=== PATIENT | female | born 1985 | race African-American/Black ===

== ENCOUNTER 2017-03-18 14:19 | Emergency (ER) | payer OTHER ==
[~2017-03-18] VITALS: Ht 162.6 cm; Wt 60.0 kg
[2017-03-18] MEDS ORDERED: SODIUM CHLORIDE 0.9% 1,000 ML IV ONE (15:57)
[2017-03-18 16:42] LABS: BASOPHILS % 0.4 % (0.0-2.0); EOSINOPHILS % 0.5 % (0.0-5.0); HEMATOCRIT. 37.5 % (36.0-48.0); HEMOGLOBIN. 12.5 g/dL (12.0-16.0); INR 1.1; LYMPHOCYTES % 13.3 % (20.0-50.0); MEAN CORPUSCULAR HEMOGLOBIN 31.2 pg (28.0-32.0); MEAN CORPUSCULAR VOLUME 93.5 fL (81.0-99.0); MEAN PLATELET VOLUME 8.2 fl (7.4-10.4); NEUTROPHILS % 77.8 % (40.0-76.0); PLATELET 239 x1000/uL (130-400); RED BLOOD CELL COUNT 4.01 mill/uL (4.2-5.4); RED CELL DISTRIBUTION WIDTH 12.8 % (11.6-14.6)
[2017-03-18 16:43] LABS: CARBON DIOXIDE 26 mEq/L (21-32); CHLORIDE 107 mEq/L (98-107)
[2017-03-18 17:35] LABS: CLARITY URINE CLEAR (CLEAR); COLOR URINE YELLOW (YELLOW); GLUCOSE URINE NEGATIVE (NEGATIVE); KETONES URINE 1+ (NEGATIVE); LEUKOCYTE ESTERASE URINE 1+ (NEGATIVE); NITRITE URINE NEGATIVE (NEGATIVE); OCCULT BLOOD URINE NEGATIVE (NEGATIVE); PROTEIN URINE NEGATIVE (NEGATIVE); SPECIFIC GRAVITY URINE 1.009 (1.005-1.030); UROBILINOGEN URINE 0.2 E.U./dL (0.2-1.0)
[2017-03-18 17:48] LABS: *AMPHETAMINES SCREEN URINE NEGATIVE (NEGATIVE); *BARBITURATES SCREEN URINE NEGATIVE (NEGATIVE); *BENZODIAZEPINES SCREEN URINE NEGATIVE (NEGATIVE); *COCAINE SCREEN URINE NEGATIVE (NEGATIVE); CANNABINOID URINE SCREEN NEGATIVE (NEGATIVE); METHADONE URINE SCREEN NEGATIVE (NEGATIVE); OPIATES URINE SCREEN NEGATIVE (NEGATIVE); PHENCYCLIDINE URINE SCREEN NEGATIVE (NEGATIVE)
[2017-03-18 18:18] VITALS: BP 107/69
== END 2017-03-18 18:38 | disposition home or self-care (01) ==
LOC: ER 14:22
DX: R42 Dizziness and giddiness (principal)
CPT/HCPCS: 36415; 80053; 80305; 81001; 81025; 85025; 85610; 93005; 99285; J7030; Z7610

== ENCOUNTER 2018-02-04 20:00 | Emergency (ER) | payer OTHER ==
[~2018-02-04] VITALS: Ht 167.6 cm; Wt 75.0 kg
[2018-02-04 20:06] VITALS: BP 116/73
[2018-02-04] MEDS ORDERED: CETI10CA2 MT (20:23)
== END 2018-02-04 22:00 | disposition left against medical advice (07) ==
LOC: ER 21:00
DX: O26.891 Other specified pregnancy related conditions, first trimester (principal); O20.8 Other hemorrhage in early pregnancy; Z3A.08 8 weeks gestation of pregnancy; Z53.21 Procedure and treatment not carried out due to patient leaving prior to being seen by health care provider

== ENCOUNTER 2022-04-05 16:36 | Emergency (ER) | payer OTHER ==
[~2022-04-05] VITALS: Ht 167.6 cm; Wt 74.0 kg
[~2022-04-05 16:36] MED LIST: CETI10CA2 MT
[2022-04-05 19:00] VITALS: BP 123/79
[2022-04-05] MEDS ORDERED: IBUPROFEN 400MG TABLET PO ONE (19:00)
[2022-04-05] MEDS ORDERED: ACETAMINOPHEN 325MG TABLET PO ONE (19:00)
[2022-04-05] MEDS ORDERED: LIDOCAINE 5% PATCH TOP SCH (19:00)
[2022-04-05 19:37] LABS: CLARITY URINE CLEAR (CLEAR); COLOR URINE YELLOW (YELLOW); KETONES URINE NEGATIVE (NEGATIVE); LEUKOCYTE ESTERASE URINE NEGATIVE (NEGATIVE); NITRITE URINE NEGATIVE (NEGATIVE); OCCULT BLOOD URINE NEGATIVE (NEGATIVE); PROTEIN URINE NEGATIVE (NEGATIVE); SPECIFIC GRAVITY URINE 1.007 (1.005-1.030); UROBILINOGEN URINE 0.2 E.U./dL (0.2-1.0)
== END 2022-04-06 02:15 | disposition left against medical advice (07) ==
LOC: ER 16:36
DX: M54.50 Low back pain, unspecified (principal); D25.9 Leiomyoma of uterus, unspecified; Z90.49 Acquired absence of other specified parts of digestive tract
CPT/HCPCS: 81003; 99283

== ENCOUNTER 2024-09-02 21:13 | Emergency (ER) | payer SELFPAY ==
[~2024-09-02] VITALS: Ht 170.2 cm; Wt 70.0 kg
[2024-09-02 21:16] VITALS: O2SAT 97
[2024-09-02] MEDS: SODIUM CHLORIDE 0.9% 1,000 ML IV ONE (22:43)
[2024-09-02] MEDS: LOPERAMIDE HCL 2MG CAPSULE PO ONE (22:50)
[2024-09-02] MEDS: ONDANSETRON HCL 4MG/2ML INJ IV STA (22:51)
[2024-09-02] MEDS: FAMOTIDINE 20MG/2ML VIAL IV STA (22:51)
[2024-09-02 22:56] LABS: HEMATOCRIT. 39.8 % (36.0-48.0); HEMOGLOBIN. 13.2 g/dL (12.0-16.0); MEAN CORPUSCULAR HEMOGLOBIN 32.4 pg (28.0-32.0); MEAN CORPUSCULAR HGB CONC 33.1 g/dL (31.0-37.0); MEAN CORPUSCULAR VOLUME 97.9 fL (81.0-99.0); MEAN PLATELET VOLUME 8.5 fl (7.4-10.4); PLATELET 193 x1000/uL (130-400); RED BLOOD CELL COUNT 4.06 mill/uL (4.2-5.4); WHITE BLOOD COUNT 9.9 x1000/uL (4.5-11.0)
[2024-09-02 22:57] LABS: DIFFERENTIAL COMMENT 1
[2024-09-02 23:06] LABS: INR 1.1; PROTHROMBIN TIME 12.3 sec (9.6-11.0)
[2024-09-02 23:09] LABS: HCG SCREEN NEGATIVE
[2024-09-02 23:10] LABS: PLATELET ESTIMATE NORMAL
[2024-09-02 23:11] LABS: CHLORIDE 109 mEq/L (98-107); POTASSIUM 3.4 mEq/L (3.5-5.1); SODIUM 141 mEq/L (136-145)
[2024-09-02 23:13] LABS: CALCIUM 7.9 mg/dL (8.7-10.4); CARBON DIOXIDE 25 mEq/L (21-32)
[2024-09-02 23:18] LABS: CREATININE 0.8 mg/dL (0.6-1.0); GLUCOSE 110 mg/dL (70-105); UREA NITROGEN BLOOD 10 mg/dL (9-23)
[2024-09-02 23:20] LABS: ALANINE AMINOTRANSFERASE 11 IU/L (10-49); ALBUMIN 3.7 g/dL (3.2-4.8); ASPARTATE AMINOTRANSFERASE 15 IU/L (<34); BILIRUBIN DIRECT 0.2 mg/dL (<=3.0); BILIRUBIN TOTAL 0.8 mg/dL (0.1-1.0)
[2024-09-02 23:50] LABS: TROPONIN I HIGH SENSITIVITY < 4 ng/L (3.0-34)
[2024-09-03] MEDS ORDERED: LOPE2CAP MT (00:07)
[2024-09-03] MEDS ORDERED: ONDA-239 PO (00:07)
[2024-09-03] MEDS: PANTOPRAZOLE SODIUM 40 MG/VIAL IV NR (00:28)
[2024-09-03 00:50] VITALS: BP 104/68; PULSE 90; RESP 16; TEMP 37.6; O2SAT 99
[2024-09-03] MEDS: MORPHINE SULFATE 2 MG/ML INJ (NOT FOR IM USE) IV ONE (00:57)
== END 2024-09-03 01:01 | disposition home or self-care (01) ==
LOC: ER 21:13
DX: K52.9 Noninfective gastroenteritis and colitis, unspecified (principal); K21.9 Gastro-esophageal reflux disease without esophagitis; Z90.49 Acquired absence of other specified parts of digestive tract
CPT/HCPCS: 80076; 80048; 84703; 83690; 85025; 85610; 84484; 36415; 96361; 96374; 96375 ×2; 99284; J3490; J2405; J7030; Z7610; J2470